=== PATIENT | female | born 1965 | race Caucasian/White ===

== ENCOUNTER 2016-10-02 10:05 | Emergency (ER) | payer OTHER ==
[~2016-10-02] VITALS: Ht 160 cm; Wt 88.4 kg
[2016-10-02 11:10] LABS: BASOPHIL COUNT 0.1 K/uL (0-0.1); EOSINOPHIL COUNT 0.4 K/uL (0-0.3); HEMATOCRIT 43.2 % (36.0-46.0); IMMATURE GRANULOCYTE (%) 0.4 % (0.0-0.7); INSTRUMENT ABS NEUTROPHIL CT 4.1 K/uL; LYMPHOCYTE COUNT 2.9 K/uL (1.0-2.8); MCH 30.1 PG (29.0-34.0); MCHC 32.4 G/DL (30.0-36.0); MCV 92.9 FL (83-99); MEAN PLAT.VOLUME 9.9 uM^3 (9.5-12.4); MONOCYTE (%) 9.3 % (3-12); MONOCYTE COUNT 0.8 K/uL (0-0.8); NEUTROPHIL (%) 49.7 % (45-76); NEUTROPHIL COUNT 4.1 K/uL (1.8-6.4); PLATELET COUNT 365 K/uL (156-360); RBC DIS.WIDTH-CV 13.1 % (11.8-14.6); RBC DIS.WIDTH-SD 44.6 % (39-53); RED BLOOD COUNT 4.65 M/uL (3.80-5.20); WHITE BLOOD COUNT 8.3 K/uL (4.1-10.2)
[2016-10-02 11:19] LABS: CHLORIDE 102 mEq/L (99-109); POTASSIUM 4.1 mEq/L (3.7-5.4); SODIUM 140 mEq/L (136-147)
[2016-10-02 11:21] LABS: GLUCOSE 97 mg/dL (70-99)
[2016-10-02 11:22] LABS: ANION GAP 7 MEQ/L (2-14)
[2016-10-02 11:25] LABS: GFR ESTIMATE (CALCULATED) > 59 mL/min/; UREA NITROGEN (BUN) 5 mg/dL (9-23)
[2016-10-02 12:34] LABS: TOTAL BILIRUBIN 0.4 mg/dL (0.0-1.0)
[2016-10-02 12:35] LABS: ALKALINE PHOSPHATASE 83 IU/L (3-129)
[2016-10-02 12:38] LABS: DIRECT BILIRUBIN 0.2 mg/dL (0.0-0.3)
[2016-10-02 12:39] LABS: LIPASE 33 U/L (1.0-51.0)
[2016-10-02 12:41] LABS: TROP-I INTERPRETATION NEGATIVE; TROPONIN-I < 0.01 ng/mL (0.0-0.30)
[2016-10-02 16:39] VITALS: BP 97/85
== END 2016-10-02 16:40 | disposition home or self-care (01) ==
LOC: EME 10:05
PROVIDERS: Emergency Medicine
DX: M54.5 Low back pain (principal); R10.32 Left lower quadrant pain; M25.552 Pain in left hip; W01.0XXA Fall on same level from slipping, tripping and stumbling without subsequent striking against object, initial encounter; J44.9 Chronic obstructive pulmonary disease, unspecified; F17.200 Nicotine dependence, unspecified, uncomplicated; Z91.81 History of falling
CPT/HCPCS: 70450; 71020; 73502; 74177; 80048; 80076; 81003; 83690; 84484; 85025; 93005; 99281; 99285; J7030

== ENCOUNTER 2016-10-31 13:15 | Emergency (ER) | payer OTHER ==
[~2016-10-31] VITALS: Ht 157.5 cm; Wt 86.6 kg
[2016-10-31 14:22] LABS: HEMATOCRIT 40.8 % (36.0-46.0); MCH 29.7 PG (29.0-34.0); MCHC 32.4 G/DL (30.0-36.0); MCV 91.9 FL (83-99); MEAN PLAT.VOLUME 9.8 uM^3 (9.5-12.4); PLATELET COUNT 304 K/uL (156-360); RBC DIS.WIDTH-SD 44.1 % (39-53); RED BLOOD COUNT 4.44 M/uL (3.80-5.20); WHITE BLOOD COUNT 9.2 K/uL (4.1-10.2)
[2016-10-31 14:33] LABS: ADD MIUA? YES; BILIRUBIN NEGATIVE; BLOOD NEGATIVE; COLOR AMBER ((YELLOW)); GLUCOSE (STRIP) NEGATIVE; KETONES 5; LEUKOCYTES NEGATIVE; NITRITE NEGATIVE; PROTEIN (STRIP) 100; SPECIFIC GRAVITY 1.028 (1.000-1.030); UROBILINOGEN 0.2 MG/DL (0.2-1.0)
[2016-10-31 14:36] LABS: CHLORIDE 106 mEq/L (99-109); POTASSIUM 4.1 mEq/L (3.7-5.4); SODIUM 141 mEq/L (136-147)
[2016-10-31 14:38] LABS: GLUCOSE 93 mg/dL (70-99)
[2016-10-31 14:39] LABS: ANION GAP 7 MEQ/L (2-14)
[2016-10-31 14:40] LABS: TOTAL BILIRUBIN 0.4 mg/dL (0.0-1.0)
[2016-10-31 14:41] LABS: ALKALINE PHOSPHATASE 80 IU/L (3-129); SERUM ETHYL ALCOHOL < 10 mg/dL
[2016-10-31 14:42] LABS: GFR ESTIMATE (CALCULATED) > 59 mL/min/
[2016-10-31 14:43] LABS: UREA NITROGEN (BUN) 9 mg/dL (9-23)
[2016-10-31 14:46] LABS: AMPHETAMINE NEGATIVE (500 ng/mL); BARBITURATES NEGATIVE (200 ng/mL); BENZODIAZEPINES PRESUMPTIVE POSITIVE (150 ng/mL); COCAINE PRESUMPTIVE POSITIVE (150 ng/mL); INTERNAL CONTROLS VALID? YES; METHADONE NEGATIVE (200 ng/mL); METHAMPHETAMINE NEGATIVE (500 ng/mL); OPIATES (MORPHINE) NEGATIVE (100 ng/mL); OXYCODONE PRESUMPTIVE POSITIVE (100 ng/mL); PHENCYCLIDINE NEGATIVE (25 ng/mL); PROPOXYPHENE NEGATIVE (300 ng/mL); THC CANNABINOIDS NEGATIVE (50 ng/mL); TRICYCLIC ANTIDEPRESSANTS NEGATIVE (300 ng/mL)
[2016-10-31 14:47] LABS: ADD MEDTOX COMMENT Y
[2016-10-31 14:57] LABS: BACTERIA RARE /HPF; EPITHELIAL CELLS 1+ /HPF; HYALINE CASTS 0-5 /LPF; MUCUS TRACE /LPF; RED BLOOD CELLS 0-5 /HPF (0-5); UCUL ADDED? NO; WHITE BLOOD CELLS 0-5 /HPF (0-5)
[2016-10-31 15:29] LABS: BENZODIAZEPINES, URINE SCREEN POSITIVE (200 ng/mL)
[2016-10-31 18:14] VITALS: BP 142/66
== END 2016-10-31 18:18 | disposition home or self-care (01) ==
LOC: EME → EDBD 13:15 → EME 13:15
PROVIDERS: Emergency Medicine
DX: F19.10 Other psychoactive substance abuse, uncomplicated (principal); R42 Dizziness and giddiness; B19.20 Unspecified viral hepatitis C without hepatic coma; F17.200 Nicotine dependence, unspecified, uncomplicated
CPT/HCPCS: 80053; 81003; 84999; 85027; 93005; 99281; 99285; G0480; J7030

== ENCOUNTER 2017-01-11 10:06 | Emergency (ER) | payer OTHER ==
[~2017-01-11] VITALS: Ht 160 cm; Wt 84.6 kg
[2017-01-11 10:30] LABS: HEMATOCRIT 42.3 % (36.0-46.0); MCH 30.5 PG (29.0-34.0); MCHC 31.7 G/DL (30.0-36.0); MCV 96.1 FL (83-99); MEAN PLAT.VOLUME 10.2 uM^3 (9.5-12.4); PLATELET COUNT 308 K/uL (156-360); RBC DIS.WIDTH-CV 13.8 % (11.8-14.6); RBC DIS.WIDTH-SD 49.5 % (39-53); WHITE BLOOD COUNT 11.7 K/uL (4.1-10.2)
[2017-01-11 10:41] LABS: CHLORIDE 103 mEq/L (99-109); POTASSIUM 3.8 mEq/L (3.7-5.4); SODIUM 144 mEq/L (136-147)
[2017-01-11 10:42] LABS: GLUCOSE 124 mg/dL (70-99)
[2017-01-11 10:42] LABS: ADD MIUA? YES; BILIRUBIN NEGATIVE; BLOOD SMALL; COLOR YELLOW ((YELLOW)); GLUCOSE (STRIP) NEGATIVE; KETONES 5; LEUKOCYTES NEGATIVE; NITRITE NEGATIVE; PROTEIN (STRIP) 30; SPECIFIC GRAVITY 1.017 (1.000-1.030); UROBILINOGEN 0.2 MG/DL (0.2-1.0)
[2017-01-11 10:44] LABS: ANION GAP 12 MEQ/L (2-14)
[2017-01-11 10:46] LABS: GFR ESTIMATE (CALCULATED) > 59 mL/min/
[2017-01-11 10:47] LABS: UREA NITROGEN (BUN) 8 mg/dL (9-23)
[2017-01-11 10:48] LABS: BACTERIA NONE SEEN /HPF; EPITHELIAL CELLS RARE /HPF; MUCUS TRACE /LPF; UCUL ADDED? NO; WHITE BLOOD CELLS 0-5 /HPF (0-5)
[2017-01-11] MEDS ORDERED: NAPROSYN500 MG PO (14:23)
[2017-01-11 14:42] VITALS: BP 106/74
== END 2017-01-11 14:43 | disposition home or self-care (01) ==
LOC: EME 10:06
DX: N83.202 Unspecified ovarian cyst, left side (principal); R31.9 Hematuria, unspecified; R35.0 Frequency of micturition; R30.0 Dysuria; R11.2 Nausea with vomiting, unspecified; F17.200 Nicotine dependence, unspecified, uncomplicated; Z71.6 Tobacco abuse counseling
CPT/HCPCS: 74176; 80048; 81003; 85027; 99281; 99283; J1885

== ENCOUNTER 2017-01-13 18:58 | Emergency (ER) | payer OTHER ==
[~2017-01-13] VITALS: Ht 160 cm; Wt 87.9 kg
[~2017-01-13 18:58] MED LIST: NAPROSYN500 MG PO
[2017-01-13 19:35] LABS: HEMATOCRIT 38.9 % (36.0-46.0); MCH 31.1 PG (29.0-34.0); MCHC 32.6 G/DL (30.0-36.0); MCV 95.3 FL (83-99); MEAN PLAT.VOLUME 10.4 uM^3 (9.5-12.4); PLATELET COUNT 319 K/uL (156-360); RBC DIS.WIDTH-CV 13.6 % (11.8-14.6); RBC DIS.WIDTH-SD 47.6 % (39-53); RED BLOOD COUNT 4.08 M/uL (3.80-5.20); WHITE BLOOD COUNT 7.6 K/uL (4.1-10.2)
[2017-01-13 19:40] LABS: CHLORIDE 103 mEq/L (99-109); POTASSIUM 4.2 mEq/L (3.7-5.4); SODIUM 140 mEq/L (136-147)
[2017-01-13 19:43] LABS: GLUCOSE 100 mg/dL (70-99)
[2017-01-13 19:44] LABS: ANION GAP 6 MEQ/L (2-14)
[2017-01-13 19:46] LABS: ALKALINE PHOSPHATASE 74 IU/L (3-129); GFR ESTIMATE (CALCULATED) > 59 mL/min/
[2017-01-13 19:47] LABS: UREA NITROGEN (BUN) 9 mg/dL (9-23)
[2017-01-13 19:50] LABS: LIPASE 25 U/L (1.0-51.0)
[2017-01-13 19:52] LABS: ADD MIUA? NO; BILIRUBIN NEGATIVE; BLOOD NEGATIVE; COLOR YELLOW ((YELLOW)); GLUCOSE (STRIP) NEGATIVE; KETONES 5; LEUKOCYTES NEGATIVE; NITRITE NEGATIVE; PROTEIN (STRIP) NEGATIVE; SPECIFIC GRAVITY 1.016 (1.000-1.030)
[2017-01-13 19:56] LABS: QUANTITATIVE HCG < 4.0 MIU/ML; TOTAL BILIRUBIN 0.1 mg/dL (0.0-1.0)
[2017-01-13] MEDS ORDERED: ULTRAM50 MG PO (20:48)
[2017-01-13] MEDS ORDERED: NORCO 5/3251 TABLET PO (20:52)
[2017-01-13 21:03] VITALS: BP 138/99
== END 2017-01-13 21:04 | disposition home or self-care (01) ==
LOC: EME 18:58
PROVIDERS: Nurse Practitioner Family
DX: N83.202 Unspecified ovarian cyst, left side (principal); F17.200 Nicotine dependence, unspecified, uncomplicated
CPT/HCPCS: 76856; 80053; 81003; 83690; 84702; 85027; 99281; 99284

== ENCOUNTER 2017-01-16 22:58 | Emergency (ER) | payer OTHER ==
[~2017-01-16] VITALS: Ht 160 cm; Wt 88.0 kg
[~2017-01-16 22:58] MED LIST changes: +NORCO 5/3251 TABLET PO; +ULTRAM50 MG PO
[2017-01-17] MEDS ORDERED: PERCOCET 5/31 TABLET PO (00:09)
[2017-01-17 00:12] VITALS: BP 127/98
== END 2017-01-17 00:30 | disposition home or self-care (01) ==
LOC: EME 22:58 → EXP 22:58
DX: R10.32 Left lower quadrant pain (principal); M54.42 Lumbago with sciatica, left side; J44.9 Chronic obstructive pulmonary disease, unspecified; B19.20 Unspecified viral hepatitis C without hepatic coma; Z90.711 Acquired absence of uterus with remaining cervical stump; Z90.49 Acquired absence of other specified parts of digestive tract; F17.200 Nicotine dependence, unspecified, uncomplicated
CPT/HCPCS: 99281; 99283; J1885; J8540

== ENCOUNTER 2017-01-23 04:20 | Emergency (ER) | payer OTHER ==
[~2017-01-23] VITALS: Ht 160 cm; Wt 86.4 kg
[~2017-01-23 04:20] MED LIST changes: +PERCOCET 5/31 TABLET PO
[2017-01-23 06:42] LABS: HEMATOCRIT 39.5 % (36.0-46.0); MCH 30.7 PG (29.0-34.0); MCHC 32.4 G/DL (30.0-36.0); MCV 94.7 FL (83-99); MEAN PLAT.VOLUME 10.3 uM^3 (9.5-12.4); PLATELET COUNT 324 K/uL (156-360); RBC DIS.WIDTH-CV 14.4 % (11.8-14.6); RBC DIS.WIDTH-SD 50.1 % (39-53); RED BLOOD COUNT 4.17 M/uL (3.80-5.20); WHITE BLOOD COUNT 16.9 K/uL (4.1-10.2)
[2017-01-23 07:15] LABS: ALKALINE PHOSPHATASE 54 IU/L (3-129); ANION GAP 7 MEQ/L (2-14); CHLORIDE 105 MEQ/L (99-109); GFR ESTIMATE (CALCULATED) > 59 mL/min/; GLUCOSE 125 mg/dL (70-99); LIPASE 43 U/L (1.0-51.0); POTASSIUM 4.3 MEQ/L (3.7-5.4); SAMPLE HEMOLYSIS CHECK 0; SAMPLE ICTERIC CHECK 0; SAMPLE LIPEMIA CHECK 0; SODIUM 138 MEQ/L (136-147); TOTAL BILIRUBIN 0.3 MG/DL (0.0-1.0); UREA NITROGEN (BUN) 16 mg/dL (9-23)
[2017-01-23 07:30] LABS: ADD MIUA? NO; BILIRUBIN NEGATIVE; BLOOD NEGATIVE; COLOR YELLOW ((YELLOW)); GLUCOSE (STRIP) NEGATIVE; KETONES 5; LEUKOCYTES NEGATIVE; NITRITE NEGATIVE; PROTEIN (STRIP) NEGATIVE; SPECIFIC GRAVITY 1.016 (1.000-1.030); UCUL ADDED? NO; UROBILINOGEN 0.2 MG/DL (0.2-1.0)
[2017-01-23 09:19] VITALS: BP 129/79
== END 2017-01-23 09:38 | disposition home or self-care (01) ==
LOC: EME 04:20
PROVIDERS: Emergency Medicine
DX: R10.9 Unspecified abdominal pain (principal); D72.829 Elevated white blood cell count, unspecified; M54.5 Low back pain; M79.89 Other specified soft tissue disorders; N83.201 Unspecified ovarian cyst, right side; Z90.710 Acquired absence of both cervix and uterus; F17.200 Nicotine dependence, unspecified, uncomplicated
CPT/HCPCS: 74176; 80053; 81003; 83690; 83880; 85027; 99281; 99284

== ENCOUNTER 2017-02-01 21:02 | Emergency (ER) | payer OTHER ==
[~2017-02-01] VITALS: Ht 160 cm; Wt 95.0 kg
[2017-02-01 22:03] LABS: HEMATOCRIT 40.9 % (36.0-46.0); MCH 30.9 PG (29.0-34.0); MCHC 32.3 G/DL (30.0-36.0); MCV 95.8 FL (83-99); MEAN PLAT.VOLUME 10.2 uM^3 (9.5-12.4); PLATELET COUNT 339 K/uL (156-360); RBC DIS.WIDTH-CV 14.2 % (11.8-14.6); RBC DIS.WIDTH-SD 49.6 % (39-53); RED BLOOD COUNT 4.27 M/uL (3.80-5.20); WHITE BLOOD COUNT 11.8 K/uL (4.1-10.2)
[2017-02-01 22:14] LABS: CHLORIDE 101 mEq/L (99-109); POTASSIUM 4.2 mEq/L (3.7-5.4)
[2017-02-01 22:15] LABS: SODIUM 137 mEq/L (136-147)
[2017-02-01 22:17] LABS: GLUCOSE 94 mg/dL (70-99)
[2017-02-01 22:18] LABS: ANION GAP 10 MEQ/L (2-14)
[2017-02-01 22:19] LABS: TOTAL BILIRUBIN 0.2 mg/dL (0.0-1.0)
[2017-02-01 22:20] LABS: ALKALINE PHOSPHATASE 73 IU/L (3-129); GFR ESTIMATE (CALCULATED) > 59 mL/min/
[2017-02-01 22:22] LABS: UREA NITROGEN (BUN) 13 mg/dL (9-23)
[2017-02-01 22:29] LABS: QUANTITATIVE HCG < 4.0 MIU/ML
[2017-02-02 01:16] LABS: ADD MIUA? NO; BILIRUBIN NEGATIVE; BLOOD NEGATIVE; COLOR YELLOW ((YELLOW)); GLUCOSE (STRIP) NEGATIVE; KETONES NEGATIVE; LEUKOCYTES NEGATIVE; NITRITE NEGATIVE; PROTEIN (STRIP) NEGATIVE; SPECIFIC GRAVITY 1.014 (1.000-1.030); UCUL ADDED? NO; UROBILINOGEN 0.2 MG/DL (0.2-1.0)
[2017-02-02] MEDS ORDERED: NORCO 5/3251 TABLET PO (01:37)
[2017-02-02] MEDS ORDERED: LIDODERM 5% P1 PATCH TD (01:37)
[2017-02-02 02:27] VITALS: BP 138/91
== END 2017-02-02 02:27 | disposition home or self-care (01) ==
LOC: EME 21:02
DX: G89.29 Other chronic pain (principal); M51.9 Unspecified thoracic, thoracolumbar and lumbosacral intervertebral disc disorder; F31.9 Bipolar disorder, unspecified; F17.200 Nicotine dependence, unspecified, uncomplicated
CPT/HCPCS: 80053; 81003; 84702; 85027; 99281; 99284; J2270

== ENCOUNTER → 2017-03-08 | Outpatient (CLI) | payer MEDICARE, OTHER ==
[~2017-03-08] MED LIST changes: +ABILIFY10 MG PO; +ADVAIR HFA120 INHAL2 IH; +ALPRAZOLAM1 MG PO; +DEPAKOTE500 MG PO; +FLEXERIL5 MG PO; +FLUOXETINE HCL20 MG PO; +GABAPENTIN600 MG PO; +LIDODERM 5% P1 PATCH TD; +OXYCODONE HCL5 MG PO; +PRINIVIL5 MG PO; +VENTOLIN HFA18 GM IH; +ZOLPIDEM TARTRA10 MG PO
== END | disposition home or self-care (01) ==
LOC: CDC 15:08
DX: M51.26 Other intervertebral disc displacement, lumbar region (principal)
CPT/HCPCS: 93000

== ENCOUNTER 2017-03-09 08:59 | Day surgery (SDC) | payer OTHER ==
[~2017-03-09] VITALS: Ht 160 cm; Wt 88.5 kg
[~2017-03-09 08:59] MED LIST changes: -OXYCODONE HCL5 MG PO
[2017-03-09 09:53] VITALS: BP 108/78
[2017-03-09] MEDS ORDERED: OXYCODONE HCL5 MG PO (13:21)
[2017-03-09 19:51] VITALS: BP 139/85
[2017-03-09 23:32] VITALS: BP 120/81
[2017-03-10 05:26] VITALS: BP 116/71
[2017-03-10 08:08] VITALS: BP 110/66
[2017-03-10 08:46] VITALS: BP 124/76
== END 2017-03-10 11:25 | disposition home or self-care (01) ==
LOC: SDC 08:59 → 2SOUTH 13:04 → SDC 13:39 → ENRESERV 14:04 → 3EAST 15:46
DX: M51.26 Other intervertebral disc displacement, lumbar region (principal); R20.8 Other disturbances of skin sensation; J44.9 Chronic obstructive pulmonary disease, unspecified; F41.8 Other specified anxiety disorders; M51.06 Intervertebral disc disorders with myelopathy, lumbar region; Z86.19 Personal history of other infectious and parasitic diseases; F17.200 Nicotine dependence, unspecified, uncomplicated
CPT/HCPCS: 72100; 76000; 94640; G0378; J0131; J0330; J0690; J1100; J1170; J1885; J2250; J2405; J2710; J3010

== ENCOUNTER 2017-11-08 23:49 | Inpatient (IN) | payer OTHER ==
[~2017-11-08] VITALS: Ht 160 cm; Wt 97.1 kg
[~2017-11-08 23:49] MED LIST changes: -ABILIFY10 MG PO; +ABILIFY15 MG PO; -FLUOXETINE HCL20 MG PO; +NARCAN4 MG NS; +OXYCODONE HCL10 MG PO; +OXYCODONE HCL5 MG PO; +PROZAC40 MG PO; +SINEQUAN25 MG PO; +XANAX1 MG PO
[2017-11-09 08:02] VITALS: BP 133/82
[2017-11-09] MEDS ORDERED: PROVENTIL,2.5 MG/3 M IH (08:30)
[2017-11-09] MEDS ORDERED: OXYCODONE-APAP1 EACH PO (14:24)
[2017-11-09 16:12] VITALS: BP 120/75
[2017-11-09 19:42] VITALS: BP 150/66
[2017-11-09 23:49] VITALS: BP 115/62
[2017-11-10 08:22] VITALS: BP 142/89
== END 2017-11-10 17:06 | disposition home or self-care (01) | DRG 460 ==
LOC: ENRESERV 23:49 → 2SOUTH 11-09 07:27 → ENRESERV 11-09 13:31 → 3EAST 11-09 15:31 → 2SOUTH 11-09 15:31 → 3EAST 11-10 17:06
DX: M51.16 Intervertebral disc disorders with radiculopathy, lumbar region (principal); M47.26 Other spondylosis with radiculopathy, lumbar region; M71.38 Other bursal cyst, other site; J44.9 Chronic obstructive pulmonary disease, unspecified; I10 Essential (primary) hypertension; B19.20 Unspecified viral hepatitis C without hepatic coma; M19.90 Unspecified osteoarthritis, unspecified site; F41.9 Anxiety disorder, unspecified; F31.9 Bipolar disorder, unspecified; F17.210 Nicotine dependence, cigarettes, uncomplicated; Z59.0 Homelessness; E66.9 Obesity, unspecified; Z68.37 Body mass index [BMI] 37.0-37.9, adult
CPT/HCPCS: 72020; 76000; 86850; 86900; 86901; 94640; 94640 76; 94799; 99202; C1821; J0690; J1885; J2250; J2405; J3010; J3370; J3480